=== PATIENT | male | born 1955 | race Caucasian/White ===

== ENCOUNTER 2016-07-29 10:53 | Day surgery (SDC) | payer OTHER ==
[~2016-07-29] VITALS: Ht 182.9 cm; Wt 106.6 kg
[2016-07-29] VITALS (11 sets, daily range): BP systolic 146–171; BP diastolic 76–91; PULSE 69–80; RESP 10–17; O2SAT 93–100
[~2016-07-29 10:53] MED LIST: ASPI-973 PO; CeFAZolin 2 Gm/50 mL D5W IV Premix IV ONE; Lactated Ringer's 1,000 ML IV SCH; OMEP20CA11 PO
[2016-07-29] MEDS ORDERED: Propofol 10,000 mCg/mL 20 mL Inj ONE (10:54)
[2016-07-29] MEDS ORDERED: Lidocaine PF 1% 30 mL Inj ONE (10:54)
[2016-07-29] MEDS ORDERED: Rocuronium 10 mg/mL 5 mL Inj ONE (10:54)
[2016-07-29] MEDS ORDERED: fentaNYL-PF 50 mCg/mL 2 mL Inj ONE (10:54)
[2016-07-29] MEDS ORDERED: Neostigmine 1 mg/mL 10 mL Inj ONE (10:54)
[2016-07-29] MEDS ORDERED: Glycopyrrolate 0.2 MG/ML 1mL Inj ONE (10:54)
[2016-07-29] MEDS ORDERED: Phenylephrine/NS 100 mCg/mL 10 mL Syringe IVPUSH ONE (10:54)
[2016-07-29] MEDS ORDERED: Ondansetron 2 mg/mL 2 mL Inj ONE (10:54)
[2016-07-29] MEDS ORDERED: CeFAZolin Inj 2 gm / 50mL D5W IV ONE (11:02)
[2016-07-29] MEDS ORDERED: Lactated Ringer's 1,000 ML IV ONE (11:16)
[2016-07-29] MEDS ORDERED: Lactated Ringer's 1,000 ML IV SCH (11:33)
[2016-07-29] MEDS ORDERED: Lactated Ringer's 500 ML IV PRN (11:33)
[2016-07-29] MEDS ORDERED: Dexamethasone 4 mg/mL Inj IVPUSH PRN (11:35)
[2016-07-29] MEDS ORDERED: Phenylephrine 10,000 mCg/mL Inj IVPUSH PRN (11:35)
[2016-07-29] MEDS ORDERED: hydrALAZINE 20 mg/mL Inj IVPUSH PRN (11:35)
[2016-07-29] MEDS ORDERED: EPHEDrine Sulfate 50 mg/mL Inj IVPUSH PRN (11:35)
[2016-07-29] MEDS ORDERED: Ondansetron 2 mg/mL 2 mL Inj IVPUSH PRN (11:35)
[2016-07-29] MEDS ORDERED: fentaNYL-PF 50 mCg/mL 2 mL Inj IVPUSH PRN (11:35)
[2016-07-29] MEDS ORDERED: MetoCLOpramide 5 mg/mL 2 mL Inj IVPUSH PRN (11:35)
[2016-07-29] MEDS ORDERED: HYDROmorphone 1 mg/mL Inj IVPUSH PRN (11:35)
[2016-07-29] MEDS ORDERED: Atropine 0.4 mg/mL Inj IVPUSH PRN (11:35)
[2016-07-29] MEDS ORDERED: Labetalol 5 mg/mL 4 mL Inj IV PRN (11:35)
--- NOTE | 2016-07-29 11:47 | PCM.HPANE ---
Patient Data Date of Service: Jul 29, 2016 Surgeon Admitting Provider: Attending Provider:David Mckeon MD Primary Care Physician:Lashanda Other Provider:Courtney Riggins Anesthesia Reason for Visit Recurrent Left Inguinal Hernia Ht/WT & BMI Height (Feet): 6 Height (Inches): 0.00 Weight (Kilograms): 106.590 Body Mass Index 31.00 Allergies Coded Allergies: No Known Allergies (Unverified , 07/27/16) Past Anesthesia History Anesthesia History: Denies:: Anesthesia Reactions, Malignant Hyperthermia Diabetes History Hx Diabetes?: No MRSA MRSA: No Medications Hypertension Medication: No Home Meds Incl Beta Ana Cristina: No Reported Medications Omeprazole 20 Mg Capsule.dr20 Mg PO DAILY Ref 0 07/27/16 Aspirin 81 Mg [id number] Mg PO DAILY Ref 0 07/27/16 History History of ENT Problems?: No HEENT History: Denies:: Abnormal Airway Cataracts Difficult Intubation Dysphagia Glaucoma Hearing Problem Sinus Problem TMJ Denture Type: None Teeth Condition: Within Normal Limits Hx of Heart Problems?: No Cardiovascular History: Denies:: Heart Murmur Hypertension Hx of Respiratory Problem?: No Respiratory History: Denies:: Use of C-PAP Machine Hx Neurologic Problems?: No Hx of GI Problems?: Yes Gastrointestinal History: Positive for:: Heartburn Other GI Pertinent History: S/P B/L INGUINAL HERNIA RPR'S IN CHILDHOOD RECURRENT LT INGUINAL HERNIA=CURRENT PROBLEM C/OF ABD PAIN Hx of Problems?: No Male Hx: Denies:: Prostate Problems Scrotal Mass Testicular Surgery Skin History: Denies:: History Skin Disorders? Pressure Ulcers Hx Musculoskeletal Problems?: No Hx of Psycho/Social Problems?: No Hx Surgeries?: Yes (B/L INGUINAL HERNIA RPR'S) Hx Any Other Health Problems?: Yes Other History: Denies:: Cancer Endocrine Disease Hospitalization Thyroid Disease History Blood Transfusions: Denies:: Blood Transfusions Hx Diabetes: No Hx Alcohol Use: NoHx Substance Use: No Smoking Status: Former Smoker Have You Smoked inLast 12 mo: YesApprox How Many Cigarettes/day: 10YR HX Stop/Bang Treated for Sleep Apnea?: No Do You Have a CPAP Machine?: No S-Snoring: Do You Snore Loudly: No T-Tired: feel tired, fatigued: No O-Obsered: Observed not breath: No P-Blood Pressure: treated: No B- Body Mass Index > 35 kg/m2: No A- Age over 50: Yes N- Neck Large Circumference: Yes G- Gender Male: Yes EULA Total Score: 3 EULA Risk Assessment: High Risk, =/>3 Yes EULA Category 4 OutPt Procedure: Yes Risk Assessment Category Category 1A: Patient has history of documented sleep apnea, and HAS NOT received any narcotic, sedative or anesthesia administration during this stay. Category 1B: Patient has history of documented sleep apnea, and HAS received any narcotic , sedative or anesthesia administration during this stay Category 2: Patient has SUSPECTED Obstructive Sleep Apnea, and HAS received any narcotic , sedative or anesthesia administration during this stay. Category 3: Patient has SUSPECTED Obstructive Sleep Apnea and HAS NOT received narcotic, sedative or anesthesia administration during this stay. Category 4: Outpatient in Procedural Areas with known sleep apnea or who screen positive for High Risk via the STOP/BANG questionnaire. Exam Exam Vital Signs Vital Signs Date Time Temp Pulse Resp B/P Pulse Ox O2 Delivery O2 Flow Rate FiO2 07/29/16 11:14 36.8 76 14 164/78 96 Room Air General Appearance: Alert, Oriented X3, Cooperative HEENT/AIRWAY: MP 2, Neck Movement (Full), Mouth Opening (Wide) Lungs: Clear to Auscultation, Normal Air Movement Heart: Regular Rate/Rhythm, Normal S1 Meds/Labs/Diagnostics Admission Meds Current Medications Lactated Ringer's (Lr) 1,000 ml @ ud STK-MED ONCE IV Last administered on t 11:16; Start 07/29/16 at 11:16; Stop 07/29/16 at 11:17; Status DC Plan Impression Patient chart reviewed, patient interviewed and anesthestic plan with risks, benefits, and alternatives discussed, and informed consent obtained. NPO per Anesth. Guidelines: Yes ASA Physical Status: ASA2 Mod Systemic Disease Anesthetic Plan: GA Bene/Risks/Altern/Consents: Yes HP Complete Prior to Induction: Yes Kaushik Parmar MD Jul 29, 2016 11:33
[2016-07-29] MEDS ORDERED: Bupivacaine-MPF 0.25% 30 mL Inj INFILTRATE ONE (12:35)
[2016-07-29] MEDS ORDERED: oxyCODONE-Acetamin 5-325 mg Tablet PO PRN (13:25)
--- NOTE | 2016-07-29 13:51 | PCM.ANEP1 ---
Post Anesthesia PACU Phase 1 Assessment Date of Service: Jul 29, 2016 Vital Signs Vital Signs Date Time Temp Pulse Resp B/P Pulse Ox O2 Delivery O2 Flow Rate FiO2 07/29/16 13:45 69 10 170/91 93 Room Air 07/29/16 13:40 36.6 73 16 152/77 94 Room Air 07/29/16 13:35 76 16 155/76 94 Room Air 07/29/16 13:30 78 17 161/83 94 Room Air 07/29/16 13:25 75 14 163/80 99 Simple Mask 8 07/29/16 13:20 80 15 171/82 100 Simple Mask 8 07/29/16 13:17 37.4 77 12 158/80 100 Simple Mask 8 07/29/16 11:14 36.8 76 14 164/78 96 Room Air Anesthetic Administered: GA Level of Alertness: Awake, talking PARRISH's with Equal Strength: Yes Pain: Yes Nausea or Vomiting: No CV Function & Hydration Stable: Yes Airway Device: Oxygen Delivery: Room Air Lungs: Normal Air Movement PACU Phase 2 Assessment Complications: No Follow up Care: No Patient Instructions Provided: N/A Kaushik Parmar MD Jul 29, 2016 13:51
--- NOTE | 2016-07-29 23:08 | OP ---
[address] [address] OPERATIVE REPORT PATIENT: IVETT NORTON : 1955 MR#: [id number] ADMIT: 07/29/2016 JOB ID: [id number] DATE OF SURGERY: 07/29/2016 ANESTHESIA: General. PREOPERATIVE DIAGNOSIS(ES): Recurrent left inguinal hernia. POSTOPERATIVE DIAGNOSIS(ES): Recurrent left inguinal hernia (direct). OPERATION: Laparoscopic repair of recurrent left inguinal hernia (TEP approach). SURGEON: Dr. David Mckeon. TAPER MACHINE: Garett Mercado PA-C (the floor covering printer assistant was required for the safe and timely completion of the case). COMPLICATIONS: None. ESTIMATED BLOOD LOSS: Less than 5 mL. CONDITION: Satisfactory. SPECIMEN: None. FINDINGS: There is a moderate-sized direct left inguinal hernia. This was repaired with a large left-sided 3D Max mesh in a standard total extraperitoneal approach. INDICATIONS/SIGNIFICANT HISTORY: The patient is a 61-year-old man with a history of a left inguinal hernia repair as a child. Nine or ten months ago while lifting something heavy at work, he developed a painful lump in his left groin. He was able to push this back in and ignored it for a number of months until it recently recurred. This time, he has noticed that the lump will currently prolapse and is much more bothersome. He was therefore referred to me and elected to undergo repair. OPERATIVE TECHNIQUE: The patient was taken into the operating room and placed in the supine position. General anesthesia was administered and preoperative antibiotics were given. The abdomen and groin were prepped and draped in standard surgical fashion and procedural pause was performed. A small infraumbilical incision was made and the anterior rectus sheath just right of midline was incised and a 10 mm trocar inserted down into the preperitoneal space. Insufflation was delivered. The space was then dissected out a little bit bluntly. Local anesthetic was injected followed by insertion of 5 mm ports in the lower midline. I then continued to develop the preperitoneal plane on the left side. The hernia was easily identified. I dissected both medial and lateral to this and then reduced the hernia. It was a direct hernia. I cleared the peritoneum away from the cord, significant amount. A left-sided large 3D Max mesh was then inserted and placed so that it provided good coverage over both the indirect and direct spaces. This was held in place while the insufflation was released. The ports were then removed. There must have been a small rent in the peritoneum somewhere as the patient had a pneumoperitoneum. I therefore inserted a Veress needle through the posterior rectus sheath at my original incision site to release the air. The fascia there was then closed with an 0 PDS suture. Skin was closed using 4-0 Monocryl. Dermabond was applied. The entire procedure was well tolerated. NITA
== END 2016-07-29 23:59 | disposition home or self-care (01) ==
LOC: SAS 10:53
PROVIDERS: ATTEND General Practice
DX: K40.91 Unilateral inguinal hernia, without obstruction or gangrene, recurrent (principal)
CPT/HCPCS: 49651; C1781; J0690; J2250; J2370; J2405; J2710; J3010; J7120